=== PATIENT | female | born 1995 | race Caucasian/White ===

== ENCOUNTER 2017-05-25 18:15 | Emergency (ER) | payer BC ==
[2017-05-25 18:45] VITALS: BP 111/66
--- NOTE | 2017-05-25 18:50 | UC ---
Ear Complaint HPI - HPI Summary HPI Summary: 21 YEAR OLD FEMALE PRESENTS WITH BILATERAL EAR PAIN. - History of Current Complaint Chief Complaint: UCEar Stated Complaint: EAR COMPLAINT Time Seen by Provider: 05/25/17 18:48 Hx Last Menstrual Period: 05/01/17 - Allergies/Home Medications Allergies/Adverse Reactions: Allergies Allergy/AdvReac Type Severity Reaction Status Date / Time Amoxicillin [From Augmentin] Allergy Unknown Verified 05/25/17 18:44 Reaction Details Clavulanic Acid Allergy Unknown Verified 05/25/17 18:44 [From Augmentin] Reaction Details PMH/Surg Hx/FS Hx/Imm Hx - Surgical History Surgical History: Yes Surgery Procedure, Year, and Place: 2 LT KNEE SURGERIES - Family History Known Family History: Positive: None - Social History Alcohol Use: None Substance Use Type: None Smoking Status (MU): Never Smoked Tobacco Review of Systems Constitutional: Negative Skin: Negative Eyes: Negative ENT: Ear Ache Respiratory: Negative Cardiovascular: Negative Gastrointestinal: Negative Genitourinary: Negative Motor: Negative Neurovascular: Negative Musculoskeletal: Negative Neurological: Negative Psychological: Negative All Other Systems Reviewed And Are Negative: Yes Physical Exam Triage Information Reviewed: Yes Vital Signs: Initial Vital Signs Temp 36.4 C 05/25/17 18:40 Pulse 65 05/25/17 18:40 Resp 16 05/25/17 18:40 BP 111/66 05/25/17 18:40 Pulse Ox 100 05/25/17 18:40 Eye Exam: Normal ENT Exam: Normal ENT: Positive: Other: - EXTERNAL EAR CANAL ERYTHEMA Dental Exam: Normal Neck exam: Normal Neck: Positive: 1 Respiratory Exam: Normal Cardiovascular Exam: Normal Abdominal Exam: Normal Musculoskeletal Exam: Normal Neurological Exam: Normal Psychological Exam: Normal Skin Exam: Normal Ear Complaint Course/Dx - Differential Dx/Diagnosis Provider Diagnoses: BILATERAL EAR OTITIS EXTERNA Discharge - Discharge Plan Condition: Stable Disposition: HOME Prescriptions: Amoxicillin CAP* [Amoxicillin 500 MG CAP*] 500 mg PO TID #30 cap Neomyc/Polym/HC 1% OTIC SUSP* [Cortisporin Otic Susp 1%*] 4 drop BOTH EARS QID # 1 btl Patient Education Materials: Otitis Externa (ED) Referrals: [facility] [Primary Care Provider] -
== END 2017-05-25 19:07 | disposition home or self-care (01) ==
LOC: UCEAST 18:15
DX: H60.93 Unspecified otitis externa, bilateral (principal); Z88.3 Allergy status to other anti-infective agents
CPT/HCPCS: 99212; G0463

== ENCOUNTER 2017-09-07 16:34 | Emergency (ER) | payer BC ==
[2017-09-07 16:43] VITALS: BP 118/66
[2017-09-07] MEDS ORDERED: Sulfamethox/Trimethoprim DS 800/160* TAB PO ONE (16:59)
--- NOTE | 2017-09-07 17:06 | UC ---
Palomo Soares Nikita, scribed for Sloane Branch MD on 09/07/17 at 1652 . Complaint Female HPI - HPI Summary HPI Summary: Onset of pain with voiding 3 days ago, with visible blood with voiding today, urgency and frequency. No back pain and no fever. History of UTI's in the past related to sexual activity; aware that she did not void post coitus recently. - History Of Current Complaint Chief Complaint: UCGU Stated Complaint: BLEEDING W/ URINE Time Seen by Provider: 09/07/17 16:42 Hx Obtained From: Patient Hx Last Menstrual Period: 09/04/17 Onset/Duration: Sudden Onset, Lasting Days - 3 days ago, Still Present Timing: Constant Severity Initially: Moderate Severity Currently: Moderate Pain Intensity: 5 Pain Scale Used: 0-10 Numeric Character: Burning - and tight Aggravating Factor(s): Urination Alleviating Factor(s): Nothing Associated Signs And Symptoms: Negative: Vaginal Discharge - Patient reports urine retention and cold-like symptoms (CANTU and congestion). Patient denies fever , back pain, vaginal discharge, chills, nausea, and vomiting. - Allergies/Home Medications Allergies/Adverse Reactions: Allergies Allergy/AdvReac Type Severity Reaction Status Date / Time Amoxicillin [From Augmentin] Allergy Unknown Verified 05/25/17 18:44 Reaction Details Clavulanic Acid Allergy Unknown Verified 05/25/17 18:44 [From Augmentin] Reaction Details PMH/Surg Hx/FS Hx/Imm Hx Endocrine History: Other Other Endocrine History: No DM Cardiovascular History: Other Other Cardiovascular History: No HTN, CAD Respiratory History: Asthma - mild, uses steroids during bouts of cold weather. - Surgical History Surgical History: Yes Surgery Procedure, Year, and Place: 2 LT KNEE SURGERIES - Family History Known Family History: Positive: Other - for mitral valve disease Negative: Hypertension, Diabetes Family History: open heart surgery (father age 19/20) - Social History Alcohol Use: Occasionally Substance Use Type: None Smoking Status (MU): Never Smoked Tobacco Review of Systems Constitutional: Fatigue, Other - denies fever, chills Skin: Negative Eyes: Negative ENT: Other - congestion secondary to recent cold Respiratory: Negative Cardiovascular: Negative Gastrointestinal: Other - denies nausea, vomiting Genitourinary: Other - dysuria, hematuria, urine retention; denies vaginal discharge. Same partner x 3 years, no concerns about STI's. Motor: Negative Neurovascular: Negative Musculoskeletal: Other: - denies back pain Neurological: Headache - secondary to recent cold Psychological: Negative All Other Systems Reviewed And Are Negative: Yes Physical Exam Triage Information Reviewed: Yes Appearance: Well-Appearing, No Pain Distress Vital Signs: Initial Vital Signs Temp 98.7 F 09/07/17 16:40 Pulse 87 09/07/17 16:40 Resp 18 09/07/17 16:40 BP 118/66 09/07/17 16:40 Pulse Ox 100 09/07/17 16:40 Eye Exam: Normal ENT: Positive: Hearing grossly normal, Pharynx normal Neck: Positive: Supple, Nontender Respiratory: Positive: Lungs clear, Normal breath sounds Cardiovascular: Positive: RRR, No Murmur Abdomen Description: Positive: Nontender, No Organomegaly, Soft. Negative: CVA Tenderness (R), CVA Tenderness (L) Bowel Sounds: Positive: Present Musculoskeletal Exam: Normal Musculoskeletal: Positive: ROM Intact Neurological Exam: Normal Psychological Exam: Normal Skin Exam: Normal Diagnostics - Laboratory Diagnostic Studies Completed/Ordered: UA with leuks, nitrates and blood. Complaint Female Dx - Course Course Of Treatment: Pt medications reviewed this visit. Prefers a longer course of treatment due to history of recurrent UTI's in recent months. - Differential Dx/Diagnosis Differential Diagnosis/HQI/PQRI: Ureteral Stone, Urinary Tract Infection Provider Diagnoses: UTI Discharge - Discharge Plan Condition: Stable Disposition: HOME Prescriptions: Sulfamethox/Trimethoprim DS* [Bactrim DS 800/160 TAB*] 1 tab PO BID #14 tab Patient Education Materials: Urinary Tract Infection in Women (ED) Referrals: [facility] [Primary Care Provider] - Additional Instructions: A urine culture will be sent and you will be notified in 2 to 3 days if a change of antibiotic is needed. Ensure a high intake of water to flush your bladder. The documentation as recorded by the Palomo bui Nikita accurately reflects the service I personally performed and the decisions made by me, Sloane Branch MD.
--- NOTE | 2017-09-09 19:03 | UC ---
Progress - Progress Note Progress Note: no change.
== END 2017-09-07 17:07 | disposition home or self-care (01) ==
LOC: UCEAST 16:34
DX: N39.0 Urinary tract infection, site not specified (principal); J45.909 Unspecified asthma, uncomplicated; Z88.1 Allergy status to other antibiotic agents
CPT/HCPCS: 81003; 87077; 87086; 87186; 99212; A9270-GY; G0463

== ENCOUNTER 2018-08-29 21:16 | Emergency (ER) | payer BC ==
[2018-08-29 21:46] VITALS: BP 138/85
[2018-08-29] MEDS ORDERED: Fluconazole 100 MG TAB* TAB PO ONE (22:08)
--- NOTE | 2018-08-30 08:31 | UC ---
Complaint Female HPI - HPI Summary HPI Summary: 22yo c/oVaginal discharge starting 5 days ago; states that was originally white in color now greenish/[place]; states that she is now having swelling and redness in vaginal area along with burning and itching; states that she did have protected sex with new partner around the time this started. Denies prior history of STD. Denies fever, chills, lumbago or pelvic pain - History Of Current Complaint Chief Complaint: UCGU Stated Complaint: DISCHARGE Time Seen by Provider: 08/29/18 22:00 Hx Obtained From: Patient Hx Last Menstrual Period: 2-3 weeks ago ?: No Onset/Duration: Sudden Onset, Lasting Days Timing: Constant Severity Initially: Mild Severity Currently: Mild Pain Intensity: 0 Pain Scale Used: 0-10 Numeric Character: Burning Aggravating Factor(s): Davy Alleviating Factor(s): Nothing Associated Signs And Symptoms: Positive: Vaginal Discharge - Risk Factors Ectopic Risk Factor: Negative Ovarian Torsion Risk Factor: Negative - Allergies/Home Medications Allergies/Adverse Reactions: Allergies Allergy/AdvReac Type Severity Reaction Status Date / Time amoxicillin [From Augmentin] Allergy Unknown Verified 08/29/18 21:56 Reaction Details clavulanic acid Allergy Unknown Verified 08/29/18 21:56 [From Augmentin] Reaction Details PMH/Surg Hx/FS Hx/Imm Hx Previously Healthy: Yes Respiratory History: Asthma - Surgical History Surgical History: Yes Surgery Procedure, Year, and Place: 2 LT KNEE SURGERIES - Family History Known Family History: Positive: None, Other - for mitral valve disease Negative: Hypertension, Diabetes Family History: open heart surgery (father age 19/20) - Social History Alcohol Use: Occasionally Substance Use Type: Marijuana Substance Use Comment - Amount & Last Used: occasionally Smoking Status (MU): Never Smoked Tobacco Review of Systems Constitutional: Negative Genitourinary: Vaginal/Penile Discharge All Other Systems Reviewed And Are Negative: Yes Physical Exam - Summary Physical Exam Summary: Vulvar erythema, yellow vaginal discharge, no cervical lesions, no CMT, uterus AV, normal size, no adnexal masses Triage Information Reviewed: Yes Appearance: Well-Appearing, No Pain Distress, Well-Nourished Vital Signs: Initial Vital Signs Temp 98.6 F 08/29/18 21:40 Pulse 96 08/29/18 21:40 Resp 18 08/29/18 21:40 BP 138/85 08/29/18 21:40 Pulse Ox 99 08/29/18 21:40 Vital Signs Reviewed: Yes Eyes: Positive: Conjunctiva Clear ENT: Positive: Hearing grossly normal Neck: Positive: Supple Respiratory: Positive: Chest non-tender Cardiovascular: Positive: Pulses Normal, Brisk Capillary Refill Abdomen Description: Positive: Nontender, No Organomegaly, Soft Bowel Sounds: Positive: Present Pelvic Exam: Positive: External Exam Normal, Bimanual Exam Normal, No Cerv. Motion Tender, No Masses, Discharge Musculoskeletal: Positive: Strength Intact, ROM Intact, No Edema Complaint Female Dx - Course Course Of Treatment: Patient PE and HPI consistent with fausto vulvovaginitis, start miconazole vaginal cream. Diflucan administered at , f/u cultures for trich, gardnerella, gc/chlamydia which are pending. f/u with PCP - Differential Dx/Diagnosis Provider Diagnoses: fausto vulvoVaginitis Discharge - Sign-Out/Discharge Documenting (check all that apply): Patient Departure All imaging exams completed and their final reports reviewed: No Studies - Discharge Plan Condition: Stable Disposition: HOME Patient Education Materials: Miconazole (Into the vagina), Antifungals (Into the vagina), Yeast Infection (ED) Referrals: [facility],Stephane [Primary Care Provider] - - Billing Disposition and Condition Condition: STABLE Disposition: Home
== END 2018-08-29 22:28 | disposition home or self-care (01) ==
LOC: UCEAST 21:16
DX: B37.3 Candidiasis of vulva and vagina (principal); F12.90 Cannabis use, unspecified, uncomplicated; J45.909 Unspecified asthma, uncomplicated; Z88.1 Allergy status to other antibiotic agents
CPT/HCPCS: 87480; 87491; 87510; 87591; 87661; 99212; A9270-GY; G0463